=== PATIENT | male | born 1975 ===

== ENCOUNTER 2019-03-25 21:20 | Outpatient (CLI) | payer OTHER ==
--- NOTE | 2019-05-25 11:12 | Diagnostic Imaging Report ---
[facility] ED [facility] [id number] [facility].[address] [id number] Report Submission Date: March 25, 2019 9:53:38 PM CDT Patient Study Name: ZEUS RAMÍREZ Date: March 25, 2019 9:28:16 PM CDT Modality Type: DX Gender: M Description: KNEE 3 VIEWS : 75 Institution: [facility] Physician: BEBA FIELDS ED Left knee 3 views including left patella Clinical history: Trauma Mild osteoarthritis of the left knee with marginal spurs. No visible fracture, dislocation or significant joint effusion. No visible radiopaque foreign bodies. Impression: Mild osteoarthritis without fractures or acute bony pathology Electronically signed on March 25, 2019 9:53:38 PM CDT by: Osmar SETHI
== END 2019-03-25 21:35 ==
LOC: RAD 21:20
PROVIDERS: ATTEND Nurse Practitioner Family
DX: S89.92XA Unspecified injury of left lower leg, initial encounter (principal)
CPT/HCPCS: 73562